=== PATIENT | female | born 1970 | race Caucasian/White ===

== ENCOUNTER 2018-12-03 16:55 | Emergency (ER) | payer MEDICAID ==
[~2018-12-03] VITALS: Ht 160 cm; Wt 64.7 kg
[2018-12-03 17:22] VITALS: Ht 160 cm; Wt 64.7 kg
[2018-12-03] MEDS ORDERED: IBUPROFEN 600 MG TAB PO ONE (21:30)
[2018-12-03] MEDS ORDERED: IBUP-1542 PO (23:17)
[2018-12-03 23:33] VITALS: BP 152/91; PULSE 65; RESP 20
--- NOTE | 2018-12-05 02:58 | ERD ---
ER Documentation Chief Complaint Chief Complaint R 5th digit finger pain/swelling x few days; denies injury HPI 48-year-old female patient with a past medical history of hypertension presents to ED complaining of right fifth digit pain and swelling started after over using the right hand. Reports that she is constantly using it work all forming plastic objects. Denies any nausea, vomiting, diarrhea, neck stiffness. ROS All systems reviewed and are negative except as per history of present illness. Medications Home Meds Active Scripts Ibuprofen* (Motrin*) 600 Mg Tab, 600 MG PO Q6, #30 TAB Prov:ARTEMIODIMITRIS Rodas PA-C 12/03/18 Allergies Allergies: Coded Allergies: No Known Allergy (Unverified , 12/03/18) PMhx/Soc Medical and Surgical Hx: pt denies Medical Hx, pt denies Surgical Hx Hx Alcohol Use: No Hx Substance Use: No Hx Tobacco Use: No Smoking Status: Never smoker FmHx Family History: No diabetes, No coronary disease Physical Exam Vitals Vital Signs Date Temp Pulse Resp B/P (MAP) Pulse Ox O2 O2 Flow FiO2 Time Delivery Rate 12/03/18 98.4 65 20 152/91 100 23:33 (111) 12/03/18 98.3 62 20 138/90 100 17:22 (106) Physical Exam Const: [id number]-iwc-bjnwywgqs, well-nourished. In no acute distress. Head: Atraumatic, normocephalic Eyes: Normal Conjunctiva without injection ENT: Normal external ear, nose and mouth. Neck: Full range of motion. No meningismus. Resp: Clear to auscultation bilaterally. No wheezing, rhonchi, rales, or crackles. No accessory muscle use. No retractions. Cardio: Regular rate and rhythm, no murmurs Skin: No petechiae or rashes Back: No midline tenderness. No CVA tenderness. Ext: No cyanosis, or edema. Cap refill less than 2 seconds. Distal pulses intact bilaterally. Neur: Awake and alert. Normal gait and coordination. Muscle strength 5/5. Sensation intact bilaterally. Psych: Normal Mood and Affect Results 24 hrs Current Medications Medications Dose Sig/Yoli Start Time Status Last (Trade) Ordered Route PRN Stop Time Admin Dose Reason Admin Ibuprofen 600 mg ONCE ONCE 12/03/18 DC 12/03/18 (Motrin) PO 21:30 21:26 12/03/18 21:31 Procedures/MDM 48-year-old female patient with a past medical history of hypertension presents to ED complaining of right fifth digit pain that started a few days ago. Patient is afebrile and nontoxic-appearing. Patient given ibuprofen 600 mg here in the ED with improvement of her pain. IMPRESSION: Soft tissue swelling with no acute fracture. Differentials include osteoarthritis versus rheumatoid arthritis. Patient's extremity symptoms have stabilized while they have been evaluated in the department and are appropriate for outpatient follow up. No evidence of fractures, dislocations, compartment syndrome, neurologic injury, vascular injury, open joint, open fracture, tendon laceration, septic arthritis, osteomyelitis, DVT, foreign body, or other emergent conditions. Diagnosis: Finger pain Discharge medications: Ibuprofen Instructed parent to bring patient to follow up with news gathering technician in 1-2 days. Instructed parent to bring patient back to the ED sooner for any worsening symptoms. Parent's questions were answered. Parent understood and agreed with discharge plan. Patient discharged stable. Disclaimer: Inadvertent spelling and grammatical errors are likely due to EHR/dictation software use and do not reflect on the overall quality of patient care. Also, please note that the electronic time recorded on this note does not necessarily reflect the actual time of the patient encounter. Departure Diagnosis: Primary Impression: Finger pain Laterality: right Qualified Codes: M79.644 - Pain in right finger(s) Condition: Stable Patient Instructions: What Is Rheumatoid Arthritis?, Osteoarthritis: Common Sites, Osteoarthritis: Coping with Pain Referrals: [facility] YOU HAVE RECEIVED A MEDICAL SCREENING EXAM AND THE RESULTS INDICATE THAT YOU DO NOT HAVE A CONDITION THAT REQUIRES URGENT TREATMENT IN THE EMERGENCY DEPARTMENT. FURTHER EVALUATION AND TREATMENT OF YOUR CONDITION CAN WAIT UNTIL YOU ARE SEEN IN YOUR DOCTORS OFFICE WITHIN THE NEXT 1-2 DAYS. IT IS YOUR RESPONSIBILITY TO MAKE AN APPOINTMENT FOR FOLOW-UP CARE. IF YOU HAVE A PRIMARY DOCTOR --you should call your primary doctor and schedule an appointment IF YOU DO NOT HAVE A PRIMARY DOCTOR YOU CAN CALL OUR PHYSICIAN REFERRAL HOTLINE AT IF YOU CAN NOT AFFORD TO SEE A PHYSICIAN YOU CAN CHOSE FROM THE FOLLOWING [facility] [address] [facility]. [facility] [address] [facility] [address] [facility] [address] [facility]. [facility] [address] [facility]. [facility]. [address] [facility]. [facility] YOU HAVE RECEIVED A MEDICAL SCREENING EXAM AND THE RESULTS INDICATE THAT YOU DO NOT HAVE A CONDITION THAT REQUIRES URGENT TREATMENT IN THE EMERGENCY DEPARTMENT. FURTHER EVALUATION AND TREATMENT OF YOUR CONDITION CAN WAIT UNTIL YOU ARE SEEN IN YOUR DOCTORS OFFICE WITHIN THE NEXT 1-2 DAYS. IT IS YOUR RESPONSIBILITY TO MAKE AN APPOINTMENT FOR FOLOW-UP CARE. IF YOU HAVE A PRIMARY DOCTOR --you should call your primary doctor and schedule and appointment IF YOU DO NOT HAVE A PRIMARY DOCTOR YOU CAN CALL OUR PHYSICIAN REFERRAL HOTLINE AT . IF YOU CAN NOT AFFORD TO SEE A PHYSICIAN YOU CAN CHOSE FROM THE FOLLOWING [facility] INSTITUTIONS: [facility] [address] [place] [address] [facility] [address] [place], [place] [id number] [place] [address] [address] [place] [address] [facility] URGENT CARE/SPECIALTIES Additional Instructions: Llame al doctor MAANA y temo andreia DIMITRI PARA DENTRO DE 2-3 JONAS para andreia derivacin para priti a un reumatlogo.Dgale a la secretaria que nosotros le instruimos hacer esta dimitri.Avise o llame si stone condicin se empeora antes de la dimitri. Regresa aqui si peor o no mejor. DIMITRIS ULLOA PA-C Dec 05, 2018 02:58
== END 2018-12-03 23:40 | disposition home or self-care (01) ==
LOC: FTE 16:55
DX: M79.644 Pain in right finger(s) (principal); I10 Essential (primary) hypertension
CPT/HCPCS: 73130; Z7610